=== PATIENT | female | born 2000 | race Caucasian/White ===

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

== ENCOUNTER 2018-03-21 13:35 | Emergency (ER) | payer MEDICAID ==
[2018-03-21] MEDS ORDERED: ONDANSETRON DISINTEGRATING 4 MG TAB ONE (13:47)
[2018-03-21] MEDS ORDERED: ONDANSETRON DISINTEGRATING 4 MG TAB PO ONE (13:48)
[2018-03-21] MEDS ORDERED: NS 1,000 ML IV ONE (15:38)
[2018-03-21] MEDS ORDERED: METOCLOPRAMIDE 10 MG/2 ML VIAL IVP ONE (15:39)
[2018-03-21] MEDS ORDERED: HALOPERIDOL LACT 5 MG/ML INJ IVP ONE (15:39)
--- NOTE | 2018-03-21 15:43 | EDPHY ---
H & P Stated Complaint: n/v - Personal History LMP (Females 10-55): Now Current Tetanus/Diphtheria Vaccine: Yes Current Tetanus Diphtheria and Acellular Pertussis (TDAP): Yes - Medical/Surgical History Hx Asthma: No Hx Chronic Respiratory Disease: No Hx Diabetes: No Hx Cardiac Disease: No Hx Renal Disease: No Hx Cirrhosis: No Hx Alcoholism: No Hx HIV/AIDS: No Hx Splenectomy or Spleen Trauma: No Other PMH: NON-IMMUNIZED, ASBERGERS, - Social History Smoking Status: Never smoked Time Seen by Provider: 03/21/18 15:32 HPI/ROS: CHIEF COMPLAINT: Abdominal pain nausea vomiting HISTORY OF PRESENT ILLNESS: 17-year-old female history of autism spectrum disorder, chronic abdominal pain, IBS, seen the ER previously for similar complaints, presents via private vehicle with mother complaining of intractable epigastric and left upper quadrant pain, intractable nausea and vomiting since last evening. Feels similar to prior episodes. Bowel movements normal. No fever no chills. No respiratory complaints. No urinary complaints. PRIMARY CARE PROVIDER: REVIEW OF SYSTEMS: A ten point review of systems was performed and is negative with the exception of the items mentioned in the HPI PAST MEDICAL & SURGICAL HISTORY: Autism spectrum disorder. IBS. Chronic abdominal pain. No history of abdominal surgeries. SOCIAL HISTORY: Nonsmoker no marijuana use. PHYSICAL EXAM (Prior to examination, patient consented to physical exam, hands were washed and my usual and customary physical exam procedures followed) 1) GENERAL: [Well-developed, well-nourished, alert and oriented. Appears anxious, she is crying, whimpering 2) HEAD: Normocephalic, atraumatic 3) HEENT: Pupils equal, round, reactive to light bilaterally. Sclera anicteric. [Nasopharynx, oropharynx, clear, no lesions. Dry mucous membrane 4) NECK: Full range of motion, no meningeal signs. 5) LUNGS: Clear auscultation bilaterally, no wheezes, no rhonchi, no retractions. 6) HEART: Regular rate and rhythm, no murmur, no heave, no gallop. 7) ABDOMEN: tender to palpation epigastrium and left upper quadrant., negative McBurney's, negative Holliday's, negative Rovsing's, negative peritoneal sign, 8) MUSCULOSKELETAL: Moving all extremities, no focal areas of tenderness, no obvious trauma. No peripheral edema or discoloration. 9) BACK: No CVA tenderness, no midline vertebral tenderness, no fluctuance, no step-off, no obvious trauma, no visual or palpable abnormality. 10) SKIN: No rash, no petechiae. 11) Psychiatric: Patient is oriented X 3, there is no agitation. DIFFERENTIAL DIAGNOSIS: My differential diagnosis includes, but is not limited to, acute appendicitis, acute cholecystitis, bowel obstruction, acute pancreatitis, ectopic , gastritis. The patient understands that this diagnosis is provisional and can never be 100% accurate. This is a partial list of diagnoses considered. These considerations are based on history, physical exam, past history and reassessment. (Meena Rapp) Constitutional: Initial Vital Signs Temperature (C) 36.8 C 03/21/18 13:44 Heart Rate 62 03/21/18 13:44 Respiratory Rate 16 03/21/18 13:44 Blood Pressure 155/66 H 03/21/18 13:44 O2 Sat (%) 99 03/21/18 13:44 O2 Delivery Mode Room Air Allergies/Adverse Reactions: codeine Allergy (Verified 03/21/18 13:44) Home Medications: Medication Instructions Recorded Ondansetron Odt [Zofran Odt] 4 mg PO Q4PRN PRN #10 tab 03/21/18 Medical Decision Making ED Course/Re-evaluation: 3:42 p.m.: I reviewed the patient's old medical records. She is currently in quite a bit of discomfort. Will administer analgesia check laboratory studies and re-evaluated. I saw this patient independently based on established practice protocols. Care of patient under supervision of primary Supervising physician Dr Gaxiola. 4:51 p.m.: Re-evaluation, sleeping, easily woken, re-examined her abdomen which is soft no guarding no rebound. She is able tolerate oral intake. [place] [id number]. I think this more than likely represents acute neutrophil demargination acute stress reaction and less than likely represents acute surgical abdominal pathology such as acute appendicitis , acute cholecystitis, visceral perforation, less than likely represents acute pancreatitis. The mother is at bedside at this time and notes that the patient has been diagnosed with a variant of cyclic vomiting syndrome. I saw this patient independently based on established practice protocols. Care of patient under supervision of secondary supervising physician Dr Gaxiola . (Meena Rapp ) The patient was evaluated and managed by the physician's curriculum assistant principal. My cosignature indicates that I reviewed the chart and I agree with the findings and plan of care as documented. I am the secondary supervising physician. Patient was signed out to me at 4:51 p.m.. The plan was for the patient be discharged. However shortly after sign out the patient complained of abdominal pain. On re-examination the patient had mildly diffuse abdominal discomfort. A CT scan was ordered. Patient was given Dilaudid 0.[address] of the abdomen pelvis with IV contrast: Please refer the dictated report. No acute disease noted. I discussed case with Dr. Akins. 1820: I discussed the results with the patient. I answered all her questions. She states she feels much better. She has no abdominal tenderness on exam. She is given warnings prior to leaving. She will return with worsening symptoms. (Nelda Gaxiola) - Data Points Laboratory Results: Laboratory Results 03/21/18 16:00 03/21/18 16:00 03/21/18 03/21/18 03/21/18 16:00 16:00 16:00 WBC 19.12 10^3/uL H 10^3/uL (3.80-9.50) RBC 4.87 10^6/uL 10^6/uL (4.18-5.33) Hgb 13.7 g/dL g/dL (12.6-16.3) Hct 42.0 % % (38.0-47.0) MCV 86.2 fL fL (81.5-99.8) MCH 28.1 pg pg (27.9-34.1) MCHC 32.6 g/dL g/dL (32.4-36.7) RDW 13.4 % % (11.5-15.2) Plt Count 308 10^3/uL 10^3/uL (150-400) MPV 10.5 fL fL (8.7-11.7) Neut % (Auto) 93.3 % H % (39.3-74.2) Lymph % (Auto) 4.3 % L % (15.0-45.0) Eddy % (Auto) 1.7 % L % (4.5-13.0) Eos % (Auto) 0.0 % L % (0.6-7.6) Baso % (Auto) 0.2 % L % (0.3-1.7) Nucleat RBC Rel Count 0.0 % % (0.0-0.2) Absolute Neuts (auto) 17.83 10^3/uL H 10^3/uL (1.70-6.50) Absolute Lymphs (auto) 0.82 10^3/uL L 10^3/uL (1.00-3.00) Absolute Monos (auto) 0.33 10^3/uL 10^3/uL (0.30-0.80) Absolute Eos (auto) 0.00 10^3/uL L 10^3/uL (0.03-0.40) Absolute Basos (auto) 0.04 10^3/uL 10^3/uL (0.02-0.10) Absolute Nucleated RBC 0.00 10^3/uL 10^3/uL (0-0.01) Immature Gran % 0.5 % % (0.0-1.1) Immature Gran # 0.10 10^3/uL 10^3/uL (0.00-0.10) Sodium 143 mEq/L mEq/L (135-145) Potassium 3.9 mEq/L mEq/L (3.3-5.0) Chloride 106 mEq/L mEq/L (97-110) Carbon Dioxide 14 mEq/l L mEq/l (22-31) Anion Gap 23 mEq/L H mEq/L (8-16) BUN 10 mg/dL mg/dL (7-23) Creatinine 0.6 mg/dL mg/dL (0.6-1.0) Estimated GFR > 60 Glucose 142 mg/dL H mg/dL (70-100) Calcium 10.0 mg/dL mg/dL (8.5-10.4) Total Bilirubin 1.2 mg/dL mg/dL (0.1-1.4) Conjugated Bilirubin 0.5 mg/dL mg/dL (0.0-0.5) Unconjugated Bilirubin 0.7 mg/dL mg/dL (0.0-1.1) AST 23 IU/L IU/L (14-46) ALT 25 IU/L IU/L (9-52) Alkaline Phosphatase 75 IU/L IU/L (38-126) Total Protein 8.8 g/dL H g/dL (6.3-8.2) Albumin 5.1 g/dL H g/dL (3.5-5.0) Lipase 51 IU/L IU/L (23-300) Beta HCG, Qual NEGATIVE Medications Given: Discontinued Medications Diphenhydramine HCl (Benadryl Injection) 25 mg IVP EDNOW ONE Stop: 03/21/18 15:59 Last Admin: 03/21/18 16:02 Dose: 25 mg Haloperidol Lactate (Haldol Injection) 2.5 mg IVP EDNOW ONE Stop: 03/21/18 15:40 Last Admin: 03/21/18 15:48 Dose: 2.5 mg Hydromorphone HCl (Dilaudid) 0.5 mg IVP EDNOW ONE Stop: 03/21/18 17:08 Last Admin: 03/21/18 17:17 Dose: 0.5 mg Sodium Chloride (Ns) 1,000 mls @ 0 mls/hr IV ONCE ONE PRN Reason: Wide Open Stop: 03/21/18 15:39 Last Admin: 03/21/18 15:48 Dose: 1,000 mls Metoclopramide HCl (Reglan Injection) 10 mg IVP EDNOW ONE Stop: 03/21/18 15:40 Last Admin: 03/21/18 15:48 Dose: 10 mg Ondansetron HCl (Zofran Odt) 4 mg PO EDNOW ONE Stop: 03/21/18 13:49 Last Admin: 03/21/18 13:49 Dose: 4 mg Departure - Departure Disposition: Home, Routine, Self-Care Clinical Impression: Abdominal pain Qualifiers: Abdominal location: left upper quadrant Qualified Code(s): R10.12 - Left upper quadrant pain Condition: Good Instructions: Acute Abdominal Pain (ED) Additional Instructions: Seek immediate medical attention if you develop new or worsening symptoms, if you develop fevers, chills, inability to tolerate oral intake or any other symptoms that concerns you. Referrals: Courtney Faith PA [Primary Care Provider] - 1-2 days without fail Farrukh Mast MD, FACG [Medical Doctor] - 3-4 days, if not improved Prescriptions: Ondansetron Odt [Zofran Odt] 4 mg PO Q4PRN PRN #10 tab PRN Reason: Nausea
[2018-03-21 16:47] LABS: PLATELET COUNT 308 10^3/uL (150-400)
[2018-03-21] MEDS ORDERED: HYDROmorphONE/DILAUDID 2 MG/ML INJ IVP ONE (17:07)
[2018-03-21] MEDS ORDERED: IOPAMIDOL (ISOVUE-300) 100 ML BTL ONE ×2 (17:15→17:21)
[2018-03-21] MEDS ORDERED: HYDROmorphONE/DILAUDID 1 MG/ML INJ ONE (17:15)
[2018-03-21 18:55] VITALS: BP 100/43
== END 2018-03-21 19:03 | disposition home or self-care (01) ==
DX: R10.12 Left upper quadrant pain (principal); R11.10 Vomiting, unspecified
CPT/HCPCS: 96374; J1170; J1200; J1630; J2765; Q9967

== ENCOUNTER 2018-08-06 00:23 | Emergency (ER) | payer MEDICAID ==
[2018-08-06] MEDS ORDERED: NS 1,000 ML IV ONE ×2 (00:44→00:47)
--- NOTE | 2018-08-06 00:45 | EDPHY ---
H & P Stated Complaint: abd pain Time Seen by Provider: 08/06/18 00:43 HPI/ROS: HPI CHIEF COMPLAINT: Abdominal pain, nausea, vomiting HISTORY OF PRESENT ILLNESS: 18-year-old female, familiar to myself as I have seen and evaluated her before, presents emergency room Past Medical History: Patient has a history of IBS, chronic abdominal pain and autism spectrum. Patient presents emergency room nausea vomiting and diffuse abdominal pain. Mom reports at bedside this started abruptly at 5:00 p.m. I [place] the [place]. She ate a omelet and had spam in it. Shortly after that she started having nausea vomiting abdominal cramping. No diarrhea. Her vomiting has been persistent this evening. Nonbloody no bile. Past Surgical History: No recent surgery Social History: Denies drugs alcohol tobacco. Family History: Noncontributory ROS REVIEW OF SYSTEMS: 10 Systems were reviewed and negative with the exception of the elements mentioned in the history of present illness. Exam Constitutional nontoxic no acute distress triage nursing summary reviewed, vital signs reviewed, awake/alert. Eyes normal conjunctivae and sclera, EOMI, PERRLA. HENT normal inspection, atraumatic, moist mucus membranes, no epistaxis, neck supple/ no meningismus, no raccoon eyes. Respiratory clear to auscultation bilaterally, normal breath sounds, no respiratory distress, no wheezing. Cardiovascular rate normal, regular rhythm, no murmur, no edema, distal pulses normal. Gastrointestinal soft, non-tender, no rebound, no guarding, normal bowel sounds, no distension, no pulsatile mass. Genitourinary no CVA tenderness. Musculoskeletal no midline vertebral tenderness, full range of motion, no calf swelling, no tenderness of extremities, no meningismus, good pulses, neurovascularly intact. Skin pink, warm, & dry, no rash, skin atraumatic. Neurologic awake, alert and oriented x 3, AAOx3, moves all 4 extremities equally, motor intact, sensory intact, CN II-XII intact, normal cerebellar, normal vision, normal speech. Psychiatric normal mood/affect. Heme/Lymph/Immune no lymphadenopathy. Differential diagnosis includes but is not limited to and in no particular order : Bowel obstruction, appendicitis, gallbladder disease, diverticulitis, colitis , enteritis, perforated viscus, gastritis, GERD, esophagitis, urinary tract infection, pyelonephritis, kidney stones Medical Decision Making: Plan for this patient IV establishment IV fluid bolus , IV Haldol and Benadryl for nausea vomiting, IV Dilaudid for pain control, IV fluids, IV Pepcid for GI upset re-evaluate. At this time abdomen is soft nontender. I do not feel that she needs imaging. Will re-evaluate. Re-evaluation: 0315: Re-examination at this time she is resting comfortably. Re-examination her abdomen is soft nontender. Blood work is reviewed, mild leukocytosis most likely from vomiting. I do not feel that she needs any imaging at this time. I think appendicitis is unlikely given her abdomen is benign. She feels much better after IV fluids, Benadryl, Dilaudid, Haldol. She p.o. Challenge very well. Vital signs stable. She is eager for discharge. Source: Patient - Personal History LMP (Females 10-55): 1-7 Days Ago Current Tetanus/Diphtheria Vaccine: No Current Tetanus Diphtheria and Acellular Pertussis (TDAP): No - Medical/Surgical History Hx Asthma: No Hx Chronic Respiratory Disease: No Hx Diabetes: No Hx Cardiac Disease: No Hx Renal Disease: No Hx Cirrhosis: No Hx Alcoholism: No Hx HIV/AIDS: No Hx Splenectomy or Spleen Trauma: No Other PMH: NON-IMMUNIZED, ASBERGERS, Autism, Depression, social anxiety, manic, chronic stomach pain - Social History Smoking Status: Never smoked Constitutional: Initial Vital Signs Temperature (C) 37.0 C 08/06/18 00:38 Heart Rate 74 08/06/18 00:38 Respiratory Rate 20 08/06/18 00:38 Blood Pressure 157/81 H 08/06/18 00:38 O2 Sat (%) 94 08/06/18 00:38 O2 Delivery Mode Room Air O2 (L/minute) 2 Allergies/Adverse Reactions: codeine Allergy (Verified 08/06/18 00:37) Medical Decision Making - Data Points Laboratory Results: Laboratory Results 08/06/18 00:55 08/06/18 00:55 08/06/18 08/06/18 08/06/18 02:45 00:55 00:55 WBC RBC Hgb Hct MCV MCH MCHC RDW Plt Count MPV Neut % (Auto) Lymph % (Auto) Bee % (Auto) Eos % (Auto) Baso % (Auto) Nucleat RBC Rel Count Absolute Neuts (auto) Absolute Lymphs (auto) Absolute Monos (auto) Absolute Eos (auto) Absolute Basos (auto) Absolute Nucleated RBC Immature Gran % Immature Gran # Sodium 139 mEq/L mEq/L (135-145) Potassium 3.6 mEq/L mEq/L (3.3-5.0) Chloride 107 mEq/L mEq/L (97-110) Carbon Dioxide 18 mEq/l L mEq/l (22-31) Anion Gap 14 mEq/L mEq/L (6-14) BUN 14 mg/dL mg/dL (7-23) Creatinine 0.5 mg/dL L mg/dL (0.6-1.0) Estimated GFR > 60 Glucose 171 mg/dL H mg/dL (70-100) Calcium 9.9 mg/dL mg/dL (8.5-10.4) Total Bilirubin 0.6 mg/dL mg/dL (0.1-1.4) Conjugated Bilirubin 0.2 mg/dL mg/dL (0.0-0.5) Unconjugated Bilirubin 0.4 mg/dL mg/dL (0.0-1.1) AST 23 IU/L IU/L (14-46) ALT 27 IU/L IU/L (9-52) Alkaline Phosphatase 58 IU/L IU/L (38-126) Total Protein 7.7 g/dL g/dL (6.3-8.2) Albumin 4.6 g/dL g/dL (3.5-5.0) Lipase 56 IU/L IU/L (23-300) Beta HCG, Qual NEGATIVE Urine Color YELLOW Urine Appearance MODERATELY TURBID Urine pH 8.0 H (5.0-7.5) Ur Specific [facility] 1.024 (1.002-1.030) Urine Protein 2+ H (NEGATIVE) Urine Ketones 2+ H (NEGATIVE) Urine Blood NEGATIVE (NEGATIVE) Urine Nitrate NEGATIVE (NEGATIVE) Urine Bilirubin NEGATIVE (NEGATIVE) Urine Urobilinogen NEGATIVE EU EU (0.2-1.0) Ur Leukocyte Esterase NEGATIVE (NEGATIVE) Urine RBC 1-3 /hpf /hpf (0-3) Urine WBC 5-10 /hpf H /hpf (0-3) Ur Epithelial Cells TRACE /lpf /lpf (NONE-1+) Urine Mucus 1+ /lpf /lpf (NONE-1+) Urine Glucose 1+ H (NEGATIVE) 08/06/18 00:55 WBC 18.98 10^3/uL H 10^3/uL (3.80-9.50) RBC 4.89 10^6/uL 10^6/uL (4.18-5.33) Hgb 13.7 g/dL g/dL (12.6-16.3) Hct 40.8 % % (38.0-47.0) MCV 83.4 fL fL (81.5-99.8) MCH 28.0 pg pg (27.9-34.1) MCHC 33.6 g/dL g/dL (32.4-36.7) RDW 13.0 % % (11.5-15.2) Plt Count 370 10^3/uL 10^3/uL (150-400) MPV 9.8 fL fL (8.7-11.7) Neut % (Auto) 84.7 % H % (39.3-74.2) Lymph % (Auto) 10.0 % L % (15.0-45.0) Bee % (Auto) 4.5 % % (4.5-13.0) Eos % (Auto) 0.0 % L % (0.6-7.6) Baso % (Auto) 0.3 % % (0.3-1.7) Nucleat RBC Rel Count 0.0 % % (0.0-0.2) Absolute Neuts (auto) 16.08 10^3/uL H 10^3/uL (1.70-6.50) Absolute Lymphs (auto) 1.89 10^3/uL 10^3/uL (1.00-3.00) Absolute Monos (auto) 0.86 10^3/uL H 10^3/uL (0.30-0.80) Absolute Eos (auto) 0.00 10^3/uL L 10^3/uL (0.03-0.40) Absolute Basos (auto) 0.06 10^3/uL 10^3/uL (0.02-0.10) Absolute Nucleated RBC 0.00 10^3/uL 10^3/uL (0-0.01) Immature Gran % 0.5 % % (0.0-1.1) Immature Gran # 0.09 10^3/uL 10^3/uL (0.00-0.10) Sodium Potassium Chloride Carbon Dioxide Anion Gap BUN Creatinine Estimated GFR Glucose Calcium Total Bilirubin Conjugated Bilirubin Unconjugated Bilirubin AST ALT Alkaline Phosphatase Total Protein Albumin Lipase Beta HCG, Qual Urine Color Urine Appearance Urine pH Ur Specific [facility] Urine Protein Urine Ketones Urine Blood Urine Nitrate Urine Bilirubin Urine Urobilinogen Ur Leukocyte Esterase Urine RBC Urine WBC Ur Epithelial Cells Urine Mucus Urine Glucose Medications Given: Discontinued Medications Diphenhydramine HCl (Benadryl Injection) 25 mg IVP EDNOW ONE Stop: 08/06/18 00:49 Last Admin: 08/06/18 01:07 Dose: 25 mg Famotidine (Pepcid) 20 mg IVP EDNOW ONE Stop: 08/06/18 00:50 Last Admin: 08/06/18 01:07 Dose: 20 mg Haloperidol Lactate (Haldol Injection) 2.5 mg IVP EDNOW ONE Stop: 08/06/18 00:49 Last Admin: 08/06/18 01:07 Dose: 2.5 mg Hydromorphone HCl (Dilaudid) 1 mg IVP EDNOW ONE Stop: 08/06/18 00:49 Last Admin: 08/06/18 01:06 Dose: 1 mg Sodium Chloride (Ns) 1,000 mls @ 0 mls/hr IV EDNOW ONE; Wide Open PRN Reason: Protocol Stop: 08/06/18 00:45 Last Admin: 08/06/18 01:06 Dose: 1,000 mls Sodium Chloride (Ns) 1,000 mls @ 0 mls/hr IV ONCE ONE PRN Reason: Wide Open Stop: 08/06/18 00:48 Last Admin: 08/06/18 01:13 Dose: 1,000 mls Departure - Departure Disposition: Home, Routine, Self-Care Clinical Impression: Vomiting Qualifiers: Vomiting type: unspecified Vomiting Intractability: non-intractable Nausea presence: with nausea Qualified Code(s): R11.2 - Nausea with vomiting, unspecified Condition: Good Instructions: Dehydration (ED), Acute Nausea and Vomiting (ED), Abdominal Pain (ED) Additional Instructions: 1. Return to the emergency room if develops worsening vomiting, abdominal pain, fever. Referrals: Courtney Faith PA [Primary Care Provider] - As per Instructions
[2018-08-06] MEDS ORDERED: HALOPERIDOL LACT 5 MG/ML INJ IVP ONE (00:48)
[2018-08-06] MEDS ORDERED: HYDROmorphONE/DILAUDID 2 MG/ML INJ IVP ONE (00:48)
[2018-08-06] MEDS ORDERED: FAMOTIDINE 20 MG/2 ML SDV IVP ONE (00:49)
[2018-08-06 01:04] LABS: PLATELET COUNT 370 10^3/uL (150-400)
[2018-08-06 03:29] VITALS: BP 117/64
== END 2018-08-06 03:29 | disposition home or self-care (01) ==
DX: R11.2 Nausea with vomiting, unspecified (principal); E86.0 Dehydration; K58.9 Irritable bowel syndrome, unspecified; F84.0 Autistic disorder
CPT/HCPCS: 96374; J1170; J1200; J1630

== ENCOUNTER 2018-10-17 21:12 | Emergency (ER) | payer MEDICAID ==
[2018-10-17 21:18] VITALS: BP 114/86
[2018-10-17] MEDS ORDERED: SKIN ADHESIVE (DERMABOND) 1 EACH TP ONE (21:27)
--- NOTE | 2018-10-17 21:31 | EDPHY ---
H & P Time Seen by Provider: 10/17/18 21:12 HPI/ROS: CLINICAL IMPRESSION: Right 5th finger laceration ASSESSMENT/PLAN: 18-year-old female presents to the emergency department by ambulance for a small laceration to the lateral PIP joint of the right 5th finger sustained on a pocket knife 3 hr prior to arrival. Wound is not actively bleeding, patient has full range of motion of the finger, 2 point discrimination and distal neurovascular exam intact. She is not vaccinated and refuses tetanus. Wound was cleaned and dressed with skin glue and Band-Aid. No clinical indication for sutures. PCP follow-up recommended. Warning signs return to ED sooner alignment discharge. DIFFERENTIAL DIAGNOSIS: includes but not limited to laceration of tendon or vascular structure, underlying fracture, laceration with retained FB ED PROCECURES: Laceration Repair Verbal consent obtained by patient. Risks discussed, including but not limited to infection, pain, retained foreign body, need for additional repair, poor cosmetic result, tendon damage, nerve damage, poor wound healing, vascular damage. Alternatives to repair discussed. [place] protocol used to establish correct patient, procedure, equipment, landing support specialist, and site. Anesthesia obtained by none. Anesthetized with nothing. Laceration location right 5th finger lateral PIP joint, length 0.5 cm, depth 1 mm, Repair type simple. Patient was prepped and draped in usual sterile fashion. Hemostasis achieved with direct pressure. Wound explored through full range of motion and entire depth of wound probed and visualized with gloved finger. No suspicion for nerve damage, tendon damage, underlying fracture, vascular damage, foreign body, or contamination. Area was cleansed with Shur-Clens and irrigated with sterile saline as per protocol. No foreign body or material removed. Repair method skin glue. Well aligned, closely approximated. wound was dressed with Band-Aid. Patient tolerated well with no immediate complications. Wound care: Clean and dry x 24 hours, gently clean with soap and water, cover with topical antibiotic ointment/bandage. Suture/Staple removal: Days CHIEF COMPLAINT: Laceration HPI: 18-year-old female with past medical history of Asperger's syndrome presents to the emergency department by ambulance for concerns of a right 5th finger laceration. Patient reports cutting the finger on a pocket knife while trying to cut something 3 hr ago. She became concerned that it was still bleeding. Tetanus is not up-to-date as she does not receive vaccines and she does not want tetanus tonight. No reported loss of sensation to the finger. No other injuries. PAST MEDICAL HISTORY: Asperger's, autism, social anxiety, chronic abdominal pain Pertinent Past Surgical History: None reported Social History: Tetanus not up-to-date, non vaccinated REVIEW OF SYSTEMS: All other systems negative Constitutional: No fever, no chills Musculoskeletal: No deformity, no joint pain Skin: Small, superficial 0.5 cm laceration to right 5th finger Neurological: No sensory loss or weakness, 2 point discrimination intact. PHYSICAL EXAM: General Appearance: Alert, oriented, appropriate for age, cooperative, NAD, well hydrated, non-toxic appearing, VSS, no hypoxia. Neurological: Alert and oriented x 3 Skin: Small superficial 0.5 cm laceration to right 5th finger. This is on the lateral aspect of the PIP joint. Musculoskeletal: Full range of motion, 2 point discrimination and distal neurovascular exam intact. MEDICAL DECISION MAKING: Patient was seen independently. Secondary supervising physician at time of evaluation was Dr. Dawson. Diagnosis: Right 5th finger laceration. New, requires workup Summary: See assessment and plan for summary of ED visit Patient Progress improved. Smoking Status: Never smoked Constitutional: Initial Vital Signs Temperature (C) 36.6 C 10/17/18 21:17 Heart Rate 90 10/17/18 21:17 Respiratory Rate 18 10/17/18 21:17 Blood Pressure 114/86 H 10/17/18 21:17 O2 Sat (%) 99 10/17/18 21:17 O2 Delivery Mode Room Air Allergies/Adverse Reactions: codeine Allergy (Verified 08/06/18 00:37) Home Medications: Medication Instructions Recorded NK [No Known Home Meds] 10/17/18 MDM/Departure - Depart Disposition: Home, Routine, Self-Care Clinical Impression: Finger laceration Qualifiers: Encounter type: initial encounter Finger: little finger Damage to nail status: without damage Foreign body presence: without foreign body Laterality: right Qualified Code(s): S61.216A - Laceration without foreign body of right little finger without damage to nail, initial encounter Condition: Good Instructions: Finger Laceration (ED) Additional Instructions: KEEP WOUND CLEAN AND DRY. AVOID SOAKING IN WATER UNTIL GLUE COMES OFF. FOLLOW UP WITH PRIMARY CARE. RETURN TO ED FOR WORSENING PAIN, SWELLING, REDNESS, TROUBLE MOVING THE FINGER, FEVER OR ANY OTHER CONCERNS. Referrals: Patient,NotPresent [Primary Care Provider] - As per Instructions
== END 2018-10-17 21:38 | disposition home or self-care (01) ==
LOC: EDUNIT#
PROC: 0HQFXZZ Repair Right Hand Skin, External Approach (ICD-10-PCS; principal; 2018-10-17)
DX: S61.216A Laceration without foreign body of right little finger without damage to nail, initial encounter (principal); W26.0XXA Contact with knife, initial encounter